=== PATIENT | female | born 1950 | race Caucasian/White ===

== ENCOUNTER → 2019-10-22 10:12 | Outpatient (BNVA) | payer BC, SELFPAY | PROVIDERS: Family Provider Family Medicine; Referring Provider Family Medicine; Visit Provider Podiatrist Foot & Ankle Surgery | DX: M79.672 Pain in left foot (principal); M79.671 Pain in right foot; M77.32 Calcaneal spur, left foot; M77.31 Calcaneal spur, right foot | CPT/HCPCS: 73630 ==

== ENCOUNTER 2019-11-05 11:17 | Outpatient (CLI) | payer BC, SELFPAY | END 2019-11-05 11:18 | disposition home or self-care (01) | LOC: SPT 11:18 | PROVIDERS: Family Provider Family Medicine; Visit Provider Podiatrist Foot & Ankle Surgery | DX: Z46.89 Encounter for fitting and adjustment of other specified devices (principal); M20.11 Hallux valgus (acquired), right foot; M20.12 Hallux valgus (acquired), left foot | CPT/HCPCS: L3030 ==

== ENCOUNTER 2021-03-02 14:29 | Outpatient (CLI) | payer BC, SELFPAY ==
--- NOTE | 2021-03-02 14:45 | XR_ITS ---
WS: [id number] Bone mineral density performed on a [employer] IDXA, 03/02/2021 Clinical data: POSTMENOPAUSAL STATUS Comparison study: 02/07/2017. Findings: The first 4 lumbar vertebral bodies demonstrated the bone mineral density of 1.609 g/cm2 for a young adult T score of 3.6. Measurement of the left radius reveals a bone mineral density of 0.940 with a young adult T score of 0.7. XR/XR DEXA axial skeleton* [id number] Impression: 1. The bone mineral density of the lumbar spine has diminished slightly but is still normal. 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 2. The bone mineral density of the left radius has increased slightly compared to the prior study and is normal.
== END 2021-03-02 14:30 | disposition home or self-care (01) ==
PROVIDERS: Visit Provider Electrodiagnostic Medicine
DX: Z78.0 Asymptomatic menopausal state (principal)
CPT/HCPCS: 77080

== ENCOUNTER 2021-04-28 20:00 | Outpatient (CLI) | payer MEDICARE, SELFPAY | END 2021-04-28 20:01 | disposition home or self-care (01) | LOC: SLEEP 04-29 09:02 | PROVIDERS: Visit Provider Nurse Practitioner Family | DX: G47.10 Hypersomnia, unspecified (principal) | CPT/HCPCS: 95810 ==

== ENCOUNTER 2021-07-19 07:23 | Outpatient (CLI) | payer MEDICARE, SELFPAY ==
[2021-07-19 08:14] VITALS: BP 126/77; PULSE 82; RESP 16; TEMP 36.4; O2SAT 97
[2021-07-19 08:19] VITALS: BMI 29.0
[2021-07-19 09:07] VITALS: BP 132/73; PULSE 77; RESP 16; TEMP 36.4; O2SAT 99
[2021-07-19 10:07] VITALS: BP 129/80; PULSE 81; RESP 16; TEMP 36.7; O2SAT 98
== END 2021-07-19 07:24 | disposition home or self-care (01) ==
PROVIDERS: Visit Provider Electrodiagnostic Medicine
DX: U07.1 COVID-19 (principal)
CPT/HCPCS: 96365

== ENCOUNTER → 2022-08-04 09:16 | Outpatient (BNVA) | payer MEDICARE, SELFPAY | PROVIDERS: Referring Provider Electrodiagnostic Medicine; Visit Provider Orthopaedic Surgery | DX: R29.898 Other symptoms and signs involving the musculoskeletal system (principal) | CPT/HCPCS: 99203 ==

== ENCOUNTER → 2022-09-13 09:22 | Outpatient (BNVA) | payer MEDICARE, SELFPAY | PROVIDERS: PCP Electrodiagnostic Medicine; Referring Provider Orthopaedic Surgery; Visit Provider Specialist | DX: G62.89 Other specified polyneuropathies (principal) | CPT/HCPCS: 95908; 95909 ==

== ENCOUNTER → 2023-08-25 12:56 | Outpatient (BNVA) | payer MEDICARE, SELFPAY | PROVIDERS: PCP Electrodiagnostic Medicine; Visit Provider Dermatology | DX: L57.0 Actinic keratosis (principal); L02.02 Furuncle of face; L72.0 Epidermal cyst; L91.8 Other hypertrophic disorders of the skin; L81.5 Leukoderma, not elsewhere classified; L57.8 Other skin changes due to chronic exposure to nonionizing radiation; C50.919 Malignant neoplasm of unspecified site of unspecified female breast; L82.0 Inflamed seborrheic keratosis; L70.0 Acne vulgaris | CPT/HCPCS: 11200; 17000; 17110; 99204 ==

== ENCOUNTER → 2023-09-29 09:24 | Outpatient (BNVA) | payer MEDICARE, SELFPAY | PROVIDERS: PCP Electrodiagnostic Medicine; Visit Provider Nurse Practitioner Family | DX: L57.0 Actinic keratosis (principal); L82.1 Other seborrheic keratosis; L57.8 Other skin changes due to chronic exposure to nonionizing radiation; L81.4 Other melanin hyperpigmentation | CPT/HCPCS: 17000; 99213 ==

== ENCOUNTER → 2024-07-05 14:20 | Outpatient (BNVA) | payer MEDICARE, SELFPAY | PROVIDERS: PCP Electrodiagnostic Medicine; Visit Provider Dermatology | DX: H01.139 Eczematous dermatitis of unspecified eye, unspecified eyelid (principal); L82.1 Other seborrheic keratosis; L81.4 Other melanin hyperpigmentation; D23.71 Other benign neoplasm of skin of right lower limb, including hip; L82.0 Inflamed seborrheic keratosis | CPT/HCPCS: 17110; 99214 ==

== ENCOUNTER → 2024-09-04 13:21 | Outpatient (BNVA) | payer MEDICARE, SELFPAY | PROVIDERS: PCP Electrodiagnostic Medicine; Visit Provider Dermatology | DX: H01.131 Eczematous dermatitis of right upper eyelid (principal); H01.134 Eczematous dermatitis of left upper eyelid; L73.8 Other specified follicular disorders; D23.72 Other benign neoplasm of skin of left lower limb, including hip; L23.89 Allergic contact dermatitis due to other agents | CPT/HCPCS: 99214 ==